=== PATIENT | female | born 1935 | race Caucasian/White ===

== ENCOUNTER 2024-08-04 10:34 | Day surgery (SDC) | payer MEDICARE ==
[2024-08-04] MEDS ORDERED: Decadron 4 MG INJ IV ONE (10:35)
[2024-08-04] MEDS ORDERED: Sodium Chloride 0.9(Preservative Free) 10 ML IJ ONE (10:35)
[2024-08-04] MEDS ORDERED: DIPRIVAN 200 MG/20 ML IV ONE (11:21)
--- NOTE | 2024-08-04 13:01 | XRAY ---
Indication: Left L4-S1 transforaminal ANNE. Intraoperative fluoroscopy provided for 29 seconds. 6 digital spot image submitted for interpretation demonstrates posterior needle tips projecting over the expected left L4 and L5 nerve roots. Small amount of contrast injected for needle tip placement. Correlate with intraoperative findings/report.
--- NOTE | 2024-08-04 13:07 | XRAY ---
29 seconds of fluoroscopy was used in surgery for a left L4-S1 transforaminal ANNE.
== END 2024-08-04 11:58 | disposition home or self-care (01) ==
LOC: SDC-PAIN 10:34
PROVIDERS: ATTEND Psychiatry & Neurology Pain Medicine
DX: M54.16 Radiculopathy, lumbar region (principal)
CPT/HCPCS: 64483; 64484; 72100; 77003; J1100; J2704; Q9966